=== PATIENT | male | born 1945 | race Caucasian/White ===

== ENCOUNTER 2017-07-28 19:18 | Inpatient (IN) | payer OTHER, BC ==
[~2017-07-28] VITALS: Ht 167.6 cm; Wt 92.6 kg
[~2017-07-28 19:18] MED LIST: AMLODIPINE BESYL5 MG PO; ASCORBIC ACID500 M3 PO; B-121000 MC2 PO; BACTRIM,SEPT1 TABLET PO; CENTRAVITES 501 EACH PO; FISH OIL 1,0001 EAC7 PO; FLOMAX0.4 MG PO; HIPREX1 GM PO; LIPITOR40 MG PO; LISINOPRIL10 MG PO; OXYCODONE HCL5 MG PO; PROSCAR5 MG PO; TOPROL XL50 MG PO; VITAMIN E400 UNIT PO
[2017-07-28 20:00] LABS: BASOPHIL (%) 0.2 % (0-1); EOSINOPHIL (%) 0.4 % (0-5); EOSINOPHIL COUNT 0.1 K/uL (0-0.3); HEMATOCRIT 41.7 % (38.0-50.0); HEMOGLOBIN 14.1 G/DL (12.5-16.6); IMMATURE GRANULOCYTE (%) 0.5 % (0.0-0.7); LYMPHOCYTE (%) 2.9 % (15-42); LYMPHOCYTE COUNT 0.4 K/uL (1.0-2.8); MCH 29.4 PG (29.0-34.0); MCHC 33.8 G/DL (30.0-36.0); MCV 86.9 FL (86-99); MONOCYTE COUNT 0.9 K/uL (0-0.8); NEUTROPHIL COUNT 12.9 K/uL (1.8-6.4); PLATELET COUNT 171 K/uL (156-360); RBC DIS.WIDTH-CV 13.1 % (11.8-14.6); RBC DIS.WIDTH-SD 41.7 % (39-53); WHITE BLOOD COUNT 14.3 K/uL (4.1-10.2)
[2017-07-28 20:08] LABS: CHLORIDE 101 mEq/L (99-109); POTASSIUM 4.4 mEq/L (3.7-5.4); SODIUM 136 mEq/L (136-147)
[2017-07-28 20:10] LABS: GLUCOSE 124 mg/dL (70-99)
[2017-07-28 20:14] LABS: CREATININE 3.3 mg/dL (0.6-1.3); GFR ESTIMATE (CALCULATED) 20 mL/min/ (58.99-99999)
[2017-07-28 20:15] LABS: UREA NITROGEN (BUN) 55 mg/dL (9-23)
[2017-07-28 20:42] LABS: ALBUMIN 3.8 g/dL (3.2-4.8)
[2017-07-28 20:44] LABS: TOTAL PROTEIN 7.4 g/dL (6.4-8.3)
[2017-07-28 20:47] LABS: ALKALINE PHOSPHATASE 100 IU/L (3-129)
[2017-07-28 20:50] LABS: ALT (GPT) 18 IU/L (3-49); AST (GOT) 24 IU/L (2-34); DIRECT BILIRUBIN 0.5 mg/dL (0.0-0.3)
[2017-07-28 20:51] LABS: LIPASE 25 U/L (1.0-51.0)
[2017-07-28 22:45] LABS: APPEARANCE SL.HAZY ((CLEAR)); BILIRUBIN NEGATIVE; BLOOD MODERATE; COLOR YELLOW ((YELLOW)); GLUCOSE (STRIP) NEGATIVE; KETONES NEGATIVE; LEUKOCYTES LARGE; NITRITE NEGATIVE; PROTEIN (STRIP) 30; SPECIFIC GRAVITY 1.018 (1.000-1.030); UROBILINOGEN 0.2 MG/DL (0.2-1.0)
[2017-07-28 22:55] LABS: BACTERIA NONE SEEN /HPF; CALCIUM OXALATE CRYSTALS 1+ /HPF; EPITHELIAL CELLS RARE /HPF; MUCUS TRACE /LPF; UCUL ADDED? YES; WHITE BLOOD CELLS TNTC /HPF (0-5)
[2017-07-28] MEDS ORDERED: AMLODIPINE BESYL5 MG PO (23:48)
[2017-07-28] MEDS ORDERED: ADULT ASPIRIN R81 MG PO (23:48)
[2017-07-28] MEDS ORDERED: HIPREX1 GM PO (23:49)
[2017-07-29 01:26] VITALS: BP 113/58
[2017-07-29 07:12] LABS: HEMATOCRIT 37.3 % (38.0-50.0); HEMOGLOBIN 12.3 G/DL (12.5-16.6); MCH 28.6 PG (29.0-34.0); MCV 86.7 FL (86-99); PLATELET COUNT 161 K/uL (156-360); RBC DIS.WIDTH-CV 13.4 % (11.8-14.6); RBC DIS.WIDTH-SD 42.2 % (39-53); WHITE BLOOD COUNT 21.4 K/uL (4.1-10.2)
[2017-07-29 07:14] VITALS: BP 127/59
[2017-07-29 07:38] LABS: ALBUMIN 2.7 G/DL (3.2-4.8); CHLORIDE 109 MEQ/L (99-109); CREATININE 3.2 MG/DL (0.6-1.3); GFR ESTIMATE (CALCULATED) 20 mL/min/ (58.99-99999); PHOSPHORUS 2.8 mg/dL (2.5-4.9); POTASSIUM 4.2 MEQ/L (3.7-5.4); SODIUM 140 MEQ/L (136-147); UREA NITROGEN (BUN) 51 mg/dL (9-23)
[2017-07-29 07:39] LABS: GLUCOSE 84 mg/dL (70-99)
[2017-07-29 12:12] VITALS: BP 115/55
[2017-07-29 19:25] VITALS: BP 133/67
[2017-07-30] VITALS (7 sets, daily range): BP systolic 117–139; BP diastolic 61–67
[2017-07-30 06:43] LABS: BASOPHIL (%) 0.2 % (0-1); EOSINOPHIL (%) 2.1 % (0-5); EOSINOPHIL COUNT 0.4 K/uL (0-0.3); HEMATOCRIT 34.4 % (38.0-50.0); HEMOGLOBIN 11.1 G/DL (12.5-16.6); IMMATURE GRANULOCYTE (%) 0.6 % (0.0-0.7); MCH 28.8 PG (29.0-34.0); MCHC 32.3 G/DL (30.0-36.0); MCV 89.4 FL (86-99); MONOCYTE (%) 15.5 % (3-12); MONOCYTE COUNT 2.7 K/uL (0-0.8); NEUTROPHIL (%) 75.6 % (45-76); NEUTROPHIL COUNT 13.2 K/uL (1.8-6.4); PLATELET COUNT 143 K/uL (156-360); RBC DIS.WIDTH-CV 13.7 % (11.8-14.6); RBC DIS.WIDTH-SD 44.9 % (39-53); RED BLOOD COUNT 3.85 M/uL (4.00-5.50); WHITE BLOOD COUNT 17.4 K/uL (4.1-10.2)
[2017-07-30 07:06] LABS: CHLORIDE 115 MEQ/L (99-109); CREATININE 2.4 MG/DL (0.6-1.3); GFR ESTIMATE (CALCULATED) 28 mL/min/ (58.99-99999); GLUCOSE 103 mg/dL (70-99); POTASSIUM 4.1 MEQ/L (3.7-5.4); SODIUM 142 MEQ/L (136-147); UREA NITROGEN (BUN) 40 mg/dL (9-23)
[2017-07-31 04:00] VITALS: BP 120/64
[2017-07-31 07:24] VITALS: BP 148/73
[2017-07-31 09:51] LABS: CHLORIDE 110 MEQ/L (99-109); GLUCOSE 102 mg/dL (70-99); POTASSIUM 3.8 MEQ/L (3.7-5.4); SODIUM 139 MEQ/L (136-147); UREA NITROGEN (BUN) 26 mg/dL (9-23)
[2017-07-31 09:56] LABS: CREATININE 1.7 MG/DL (0.6-1.3); GFR ESTIMATE (CALCULATED) 42 mL/min/ (58.99-99999)
[2017-07-31 11:06] LABS: BASOPHIL (%) 0.7 % (0-1); BASOPHIL COUNT 0.1 K/uL (0-0.1); EOSINOPHIL COUNT 0.4 K/uL (0-0.3); HEMATOCRIT 40.1 % (38.0-50.0); HEMOGLOBIN 12.8 G/DL (12.5-16.6); IMMATURE GRANULOCYTE (%) 2.5 % (0.0-0.7); LYMPHOCYTE (%) 9.2 % (15-42); LYMPHOCYTE COUNT 0.9 K/uL (1.0-2.8); MCH 28.4 PG (29.0-34.0); MCHC 31.9 G/DL (30.0-36.0); MCV 88.9 FL (86-99); MONOCYTE (%) 12.2 % (3-12); MONOCYTE COUNT 1.2 K/uL (0-0.8); NEUTROPHIL (%) 71.4 % (45-76); NEUTROPHIL COUNT 6.7 K/uL (1.8-6.4); PLATELET COUNT 179 K/uL (156-360); RBC DIS.WIDTH-CV 13.6 % (11.8-14.6); RBC DIS.WIDTH-SD 44.4 % (39-53); RED BLOOD COUNT 4.51 M/uL (4.00-5.50); WHITE BLOOD COUNT 9.4 K/uL (4.1-10.2)
[2017-07-31 15:17] VITALS: BP 136/69
[2017-07-31 19:26] VITALS: BP 133/64
[2017-07-31 23:46] VITALS: BP 144/71
[2017-08-01 03:35] VITALS: BP 133/71
[2017-08-01 08:07] VITALS: BP 138/66
[2017-08-01] MEDS ORDERED: ZYVOX600 MG PO (12:22)
== END 2017-08-01 17:25 | disposition home health service (06) | DRG 872 ==
LOC: EME 19:18 → 5SOUTH 23:41 → EDOF 23:41 → ENRESERV 23:42 → 5SOUTH 07-29 01:13 → ENRESERV 07-29 20:27 → ENPENDDIS 08-01 12:40 → 5SOUTH 08-01 17:25
PROVIDERS: Hospitalist; Urology
DX: A41.1 Sepsis due to other specified staphylococcus (principal); N13.6 Pyonephrosis; R65.20 Severe sepsis without septic shock; N17.9 Acute kidney failure, unspecified; I10 Essential (primary) hypertension; I25.10 Atherosclerotic heart disease of native coronary artery without angina pectoris; E78.5 Hyperlipidemia, unspecified; N40.1 Benign prostatic hyperplasia with lower urinary tract symptoms; R33.8 Other retention of urine; R31.0 Gross hematuria; R21 Rash and other nonspecific skin eruption; N32.3 Diverticulum of bladder; N21.0 Calculus in bladder; Z87.442 Personal history of urinary calculi; Z95.1 Presence of aortocoronary bypass graft; Z82.49 Family history of ischemic heart disease and other diseases of the circulatory system; Z83.3 Family history of diabetes mellitus
CPT/HCPCS: 74019; 74176; 74420; 80048; 80069; 80076; 80202; 81003; 82365 90; 82948; 83605; 83690; 85025; 85027; 87040; 87077; 87086 GA; 87186; 87801; 99281; 99285; C1758; C1769; C2625; J0692; J1100; J2405; J3370; J7030; J7643

== ENCOUNTER → 2017-08-07 | Outpatient (CLI) | payer MEDICARE, BC ==
[~2017-08-07] MED LIST changes: +ADULT ASPIRIN R81 MG PO; +ZYVOX600 MG PO
== END | disposition home or self-care (01) ==
LOC: CDC 09:50
DX: Z01.810 Encounter for preprocedural cardiovascular examination (principal); I44.0 Atrioventricular block, first degree; R94.31 Abnormal electrocardiogram [ECG] [EKG]
CPT/HCPCS: 93000

== ENCOUNTER 2017-09-19 07:45 | Day surgery (SDC) | payer OTHER, BC ==
[~2017-09-19] VITALS: Ht 167.6 cm; Wt 83.9 kg
[~2017-09-19 07:45] MED LIST changes: +LASIX20 MG PO; +NITROSTAT0.4 MG SL; +NORVASC5 MG PO; +OXYCODONE-ACET1 EACH PO; +TOPROL XL25 MG PO
[2017-09-19 08:21] VITALS: BP 135/65
[2017-09-19 12:36] VITALS: BP 124/76
[2017-09-19 13:35] VITALS: BP 124/64
== END 2017-09-19 14:08 | disposition home or self-care (01) ==
LOC: SDC 07:45
DX: N40.1 Benign prostatic hyperplasia with lower urinary tract symptoms (principal); R33.8 Other retention of urine; I10 Essential (primary) hypertension; I25.10 Atherosclerotic heart disease of native coronary artery without angina pectoris; Z95.1 Presence of aortocoronary bypass graft; E78.5 Hyperlipidemia, unspecified; Z87.440 Personal history of urinary (tract) infections; Z79.82 Long term (current) use of aspirin
CPT/HCPCS: 74420; C1758; C1769; C2625; J0690; J1580; J2405; J3010